=== PATIENT | male | born 1980 | race African-American/Black ===

== ENCOUNTER 2018-04-09 00:59 | Emergency (ER) | payer BC ==
--- NOTE | 2018-04-09 02:02 | ER Document Report ---
ED General - General Chief Complaint: Rash Stated Complaint: RASH Time Seen by Provider: 04/09/18 01:53 Notes: Patient is a pleasant 30-year-old male presents with complaint of some skin breakdown on his right hand. Patient says he had a laceration on the dorsum of the right second finger. Said this was healing well but she went back to work. He says he wears gloves that are mesh on the back and therefore he has no protection to the dorsum of his hand. 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 The client was getting over his hand and now has caused some skin breakdown on his hand. He says that he does have rubber gloves that he can wear however he has not been wearing them because he feels that his hands get hot sweaty inside these gloves he is afraid that this could be worse for his skin. No other complaints at this time. No fevers. No spreading redness or swelling. TRAVEL OUTSIDE OF THE [place] IN LAST 30 DAYS: No Past Medical History - Social History Smoking Status: Never Smoker Frequency of alcohol use: None Drug Abuse: None Family History: Reviewed & Not Pertinent Review of Systems - Review of Systems Notes: My Normal Review Basic REVIEW OF SYSTEMS: CONSTITUTIONAL : Denies fever, chills, or sweats. Denies recent illness. MUSCULOSKELETAL: Denies neck or back pain or joint pain or swelling. SKIN: Skin breakdown of her right hand. NEUROLOGICAL: Denies sensory or motor loss. ALL OTHER SYSTEMS REVIEWED AND NEGATIVE. Physical Exam - Vital signs Vitals: Temp Pulse Resp BP Pulse Ox 98.4 F 69 14 105/90 H 98 04/09/18 01:16 04/09/18 01:16 04/09/18 01:16 04/09/18 01:16 04/09/18 01:16 - Notes Notes: General Appearance: Well nourished, alert, cooperative, no acute distress, no obvious discomfort. Vitals: reviewed, See vital signs table. Extremities: strength 5/5 in all extremities, good pulses in all extremities, full flexion-extension of the fingers. Good distal sensation in the hand. Skin: Patient has some areas of what appear to be skin breakdown with scabbing over them. The largest areas over the dorsum of the right second digit. There are two very small areas. One is over the distal second right digit and the other one is over the dorsum of the right hand. No spreading redness. No signs of infection. No abnormal drainage. Neuro: speech clear, oriented x 3, normal affect, responds appropriately to questions. Course - Re-evaluation Re-evalutation: 04/09/18 23:02 Patient has areas of scabbing on his right hand likely related to skin breakdown from current exposure to the coolant at work. And talk to him about length about the importance of wearing rubber gloves that they split work to help protect the back of his hand from getting coolant on them. I informed him that continued recurrent exposure to the cold will only lead to more skin breakdown and he could eventually get infection of his hand. Patient shows understanding of this. I informed to return to ER if he does have any redness or swelling or or worsening of the skin on his hand. Patient agrees with plan will be discharged home. Dictation of this chart was performed using voice recognition software; therefore, there may be some unintended grammatical errors. - Vital Signs Vital signs: Temp Pulse Resp BP Pulse Ox 98.1 F 65 18 134/64 H 97 04/09/18 02:31 04/09/18 02:31 04/09/18 02:31 04/09/18 02:31 04/09/18 02:31 Discharge - Discharge Clinical Impression: Skin breakdown Condition: Good Disposition: HOME, SELF-CARE Additional Instructions: Please wear the rubber gloves at work so you no longer have skin exposure to the coolant. please use moisturizing creams when at home such as Cera Ve or Eucerin cream. please follow up with a doctor in 1 week for reevaluation to make sure your hand is improving. Return to the Er if there is any spreading redness, worsening skin breakdown, or signs of infection.
[2018-04-09 02:40] VITALS: BP 134/64
== END 2018-04-09 02:45 | disposition home or self-care (01) ==
LOC: ER 00:59
DX: L98.8 Other specified disorders of the skin and subcutaneous tissue (principal)
CPT/HCPCS: 99282